=== PATIENT | female | born 1995 | race Caucasian/White ===

== ENCOUNTER 2017-08-07 19:01 | Emergency (ER) | payer BC, MEDICAID ==
[~2017-08-07] VITALS: Ht 160 cm; Wt 75.0 kg
[2017-08-08 00:14] VITALS: BP 122/65
== END 2017-08-08 01:58 | disposition left against medical advice (07) ==
LOC: ER 20:35
DX: R21 Rash and other nonspecific skin eruption (principal); Z53.21 Procedure and treatment not carried out due to patient leaving prior to being seen by health care provider
CPT/HCPCS: 81025